=== PATIENT | female | born 1960 | race Caucasian/White ===

== ENCOUNTER 2021-01-14 21:18 | Observation (INO) | payer BC ==
[2021-01-14] MEDS ORDERED: HYDROmorphone 0.5 MG/0.5 ML SYRINGE IVP STA (21:30)
[2021-01-14 21:48] LABS: Basophils % (A) 0 %; Eosinophils % (A) 0 %; HGB 12.5 gm/dL (11.4-16.0); Lymphocytes # (A) 0.8 k/uL (1.0-4.8); Lymphocytes % (A) 7 %; MCH 29.7 pg (25.0-35.0); MCHC 33.8 g/dL (31.0-37.0); MCV 87.9 fL (80.0-100.0); Mean Platelet Volume 6.9; Monocytes # (A) 0.4 k/uL (0-1.0); Monocytes % (A) 3 %; Neutrophils # (A) 9.5 k/uL (1.3-7.7); Neutrophils % (A) 88 %; Platelet Count 374 k/uL (150-450); RBC 4.21 m/uL (3.80-5.40); RDW 13.3 % (11.5-15.5); WBC 10.8 k/uL (3.8-10.6)
[2021-01-14 22:03] LABS: Prothrombin Time 10.6 sec (9.0-12.0)
[2021-01-14 22:11] LABS: ALT 90 U/L (4-34); AST 76 U/L (14-36); African American GFR (CKD) 77 (>60 ml/min/1.73 sqM); Albumin 4.2 g/dL (3.5-5.0); Alcohol <10 mg/dL; Alkaline Phosphatase 62 U/L (38-126); Anion Gap 13 mmol/L; Blood Urea Nitrogen 24 mg/dL (7-17); Calcium 9.4 mg/dL (8.4-10.2); Carbon Dioxide 20 mmol/L (22-30); Chloride 100 mmol/L (98-107); Glucose 155 mg/dL (74-99); Non-African American GFR(CKD) 67 (>60 ml/min/1.73 sqM); Potassium 5.1 mmol/L (3.5-5.1); Sodium 133 mmol/L (137-145); Total Bilirubin 0.6 mg/dL (0.2-1.3)
--- NOTE | 2021-01-14 22:23 | XR ---
EXAMINATION TYPE: XR pelvis AP view DATE OF EXAM: 01/14/2021 COMPARISON: NONE HISTORY: Trauma. Pain TECHNIQUE: Single view FINDINGS: Pelvic ring is intact. Proximal femurs and hip joints are intact. Sacroiliac joints are int act. IMPRESSION: No pelvic fracture seen.
--- NOTE | 2021-01-14 22:25 | XR ---
EXAMINATION TYPE: XR chest 1V portable DATE OF EXAM: 01/14/2021 COMPARISON: NONE HISTORY: Trauma pain. TECHNIQUE: Single view FINDINGS: There is mild subsegmental atelectasis right lung base. Heart is normal. There are no hilar masses. There is no heart failure. Costophrenic angles are fairly clear. There is no pneumothorax. T here are chest leads. There is some arthritic change in the right shoulder joint. IMPRESSION: Subsegmental atelectasis right lung base. Normal heart.
--- NOTE | 2021-01-14 22:42 | CT ---
EXAMINATION TYPE: CT brain cspine wo con DATE OF EXAM: 01/14/2021 COMPARISON: None HISTORY: trauma CT DLP: [id number] mGycm Automated exposure control for dose reduction was used. TECHNIQUE: CT scan of the head and cervical spine are performed without contrast. FINDINGS: There is no acute intracranial hemorrhage, mass effect, or midline shift identified. The ventricles and sulci are within normal limits in size. The globes are intact and the visualized sin uses are clear. Visualized portions of the soft tissues demonstrate subcutaneous edema/hematoma invol ving the right posterior and lateral superior soft tissues. Cervical spine is visualized in its entirety from C1 through upper thoracic levels and demonstrates s atisfactory alignment without evidence of acute fracture or dislocation. Prevertebral soft tissue ap pears within normal limits. The C1-C2 articulation is unremarkable. Opacities within the lung apices are present. Please see dedicated CT chest for findings regarding th e chest. IMPRESSION: 1. There is no acute fracture or dislocation evident in the cervical spine. 2. No acute intracranial hemorrhage, mass effect, or midline shift is seen. 3. Scalp hematoma/edema involving the right posterolateral soft tissues.
--- NOTE | 2021-01-14 22:45 | CT ---
EXAMINATION TYPE: CT ChestAbdPelvis w con DATE OF EXAM: 01/14/2021 COMPARISON: None HISTORY: trauma Pain CT DLP: [id number] mGycm Automated exposure control for dose reduction was used. CONTRAST: Performed with IV Contrast, patient injected with 100 mL of Isovue 300. Images obtained from the thoracic inlet to the floor the pelvis with IV contrast. There is patchy atelectasis in the posterior lung castillo. There is no pneumothorax. There is no evide nce of a pulmonary mass. There is no pleural effusion. There is no mediastinal adenopathy. Thoracic a benjamín is intact. There is no aneurysm or dissection. There are no hilar masses. There is small hiatal hernia. Liver and spleen are intact. There is no pancreatic mass. Gallbladder is intact. There are small calc ified gallstones. Stomach is intact. There is no adrenal mass. 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 There is no retroperitoneal adenopathy. Lateral distends smoothly. Uterus is anteverted. There is no free fluid in the pelvis. There are sigmoid diverticula without sign of diverticulitis. Appendix not seen. No sign of thickened appendix. There is subcutaneous edema over the posterior lumbar spine on the right side and extending into the pelvis. There is subcutaneous edema over the posterior lateral right gluteal muscle. There is no mesenteric edema. There is no ascites or free air. There is no bowel obstruction. Thoracic and lumbar spine are intact. There is no compression fracture. Sternum is intact. The bony p terri is intact. There is no evidence of a hip fracture. Acetabula appear intact. The shoulder joints appear intact. There is minor arthritic changes. The ribs appear intact. IMPRESSION: There is some patchy atelectasis in the posterior lung castillo. There is subcutaneous bruising over th e posterior right side lumbar spine and right side of the pelvis. No evidence of traumatic injury within the abdomen and pelvis. There is colonic diverticulosis withou t diverticulitis.
[2021-01-14] MEDS ORDERED: METOCLOPRAMIDE 5 MG/ML 2 ML VIAL IVP STA ×2 (23:04→23:43)
--- NOTE | 2021-01-14 23:04 | ED ---
Fall HPI - General Chief Complaint: Fall Stated Complaint: Fall Source: patient, EMS Mode of arrival: EMS - History of Present Illness Initial Comments: 60-year-old female past medical history of hyperlipidemia and hypertension presents to the emergency department for evaluation of traumatic injuries. Conner jimenez was climbing a ladder around 1 PM this afternoon when she fell off from a height of approximately 15 feet. She hit her head and states that she lost consciousness. Also must of fell onto her right side as she is having sided chest wall and flank pain. She was having some nausea and vomiting after she became arousable. She then began having some nausea in the evening and called EMS. She had an episode of vomiting in ambulance. IV was established they gave her 4 mg of Zofran. Patient is reporting a headache without visual changes. No neck pain. She arrives without a c-collar. She denies any numbness, tingling or weakness in her extremities. Does admit to some right-sided chest wall pain. No hematemesis. Denies any abdominal pain. No pain in her extremities. Patient is not on blood thinner. No other alleviating, precipitating or modifying factors - Related Data Home Medications Medication Instructions Recorded Confirmed Omeprazole 20 mg PO DAILY 01/14/21 01/14/21 Pravastatin Sodium [Pravachol] 40 mg PO DAILY 01/14/21 01/14/21 lisinopriL [Zestril] 10 mg PO DAILY 01/14/21 01/14/21 Allergies Allergy/AdvReac Type Severity Reaction Status Date / Time No Known Allergies Allergy Verified 01/14/21 23:01 Review of Systems ROS Statement: Those systems with pertinent positive or pertinent negative responses have been documented in the HPI. ROS Other: All systems not noted in ROS Statement are negative. Past Medical History Past Medical History: Hyperlipidemia, Hypertension History of Any Multi-Drug Resistant Organisms: None Reported Past Surgical History: No Surgical Hx Reported Past Psychological History: No Psychological Hx Reported Smoking Status: Former smoker General Exam Limitations: no limitations Course Vital Signs 01/14/21 01/14/21 21:20 21:23 Temperature 98.8 F Pulse Rate 82 Respiratory 18 Rate Blood Pressure 101/59 Medical Decision Making - Medical Decision Making Upon arrival patient is placed into trauma bay 3. Priority she was activated. Patient was given 1 mg of Dilaudid. Patient placed in a c-collar. Portable chest and pelvic x-rays performed. Patient does go for a CT of her head and ce rvical spine. CT of her chest and pelvis is performed also due to her trauma. Laboratory studies are reviewed. Mild elevation of the patient's AST and ALTs. Patient does go over for CT. This is after she is given pain medications. She does have a second episode of emesis and oxygen saturations fall. Patient requires 3 L of oxygen to maintain saturations of 94%. CT of the brain, cervical spine, chest and pelvis are reviewed and demonstrate subcutaneous edema of the right sided soft tissues. No acute intracranial process. No cervical fractures. Cervical collar is removed. Patient denies having any neck pain at this time. I did discuss diagnosis, differential and treatment options. As the patient continues to have nausea with vomiting and is requiring some oxygen needs I did recommend admission. Spoke with Dr. Barnard who agreed to admit the patient. Patient remained in stable condition awaiting a bed - Lab Data Result diagrams: 01/14/21 21:30 01/14/21 21:30 Lab Results 01/14/21 01/14/21 01/14/21 Range/Units 21:30 21:30 21:30 WBC 10.8 H (3.8-10.6) k/uL RBC 4.21 (3.80-5.40) m/uL Hgb 12.5 (11.4-16.0) gm/dL Hct 37.0 (34.0-46.0) % MCV 87.9 (80.0-100.0) fL MCH 29.7 (25.0-35.0) pg MCHC 33.8 (31.0-37.0) g/dL RDW 13.3 (11.5-15.5) % Plt Count 374 (150-450) k/uL MPV 6.9 Neutrophils % 88 % Lymphocytes % 7 % Monocytes % 3 % Eosinophils % 0 % Basophils % 0 % Neutrophils # 9.5 H (1.3-7.7) k/uL Lymphocytes # 0.8 L (1.0-4.8) k/uL Monocytes # 0.4 (0-1.0) k/uL Eosinophils # 0.0 (0-0.7) k/uL Basophils # 0.0 (0-0.2) k/uL PT 10.6 (9.0-12.0) sec INR 1.0 (<1.2) APTT 21.0 L (22.0-30.0) sec Sodium 133 L (137-145) mmol/L Potassium 5.1 (3.5-5.1) mmol/L Chloride 100 (98-107) mmol/L Carbon Dioxide 20 L (22-30) mmol/L Anion Gap 13 mmol/L BUN 24 H (7-17) mg/dL Creatinine 0.93 (0.52-1.04) mg/dL Est GFR (CKD-EPI)AfAm 77 (>60 ml/min/1.73 sqM) Est GFR (CKD-EPI)NonAf 67 (>60 ml/min/1.73 sqM) Glucose 155 H (74-99) mg/dL Calcium 9.4 (8.4-10.2) mg/dL Total Bilirubin 0.6 (0.2-1.3) mg/dL AST 76 H (14-36) U/L ALT 90 H (4-34) U/L Alkaline Phosphatase 62 (38-126) U/L Troponin I (0.000-0.034) ng/mL Total Protein 7.0 (6.3-8.2) g/dL Albumin 4.2 (3.5-5.0) g/dL Serum Alcohol <10 mg/dL Blood Type Blood Type Confirm Blood Type Recheck Bld Type Recheck Status Antibody Screen Spec Expiration Date 01/14/21 01/14/21 01/14/21 Range/Units 21:30 21:30 21:44 WBC (3.8-10.6) k/uL RBC (3.80-5.40) m/uL Hgb (11.4-16.0) gm/dL Hct (34.0-46.0) % MCV (80.0-100.0) fL MCH (25.0-35.0) pg MCHC (31.0-37.0) g/dL RDW (11.5-15.5) % Plt Count (150-450) k/uL MPV Neutrophils % % Lymphocytes % % Monocytes % % Eosinophils % % Basophils % % Neutrophils # (1.3-7.7) k/uL Lymphocytes # (1.0-4.8) k/uL Monocytes # (0-1.0) k/uL Eosinophils # (0-0.7) k/uL Basophils # (0-0.2) k/uL PT (9.0-12.0) sec INR (<1.2) APTT (22.0-30.0) sec Sodium (137-145) mmol/L Potassium (3.5-5.1) mmol/L Chloride (98-107) mmol/L Carbon Dioxide (22-30) mmol/L Anion Gap mmol/L BUN (7-17) mg/dL Creatinine (0.52-1.04) mg/dL Est GFR (CKD-EPI)AfAm (>60 ml/min/1.73 sqM) Est GFR (CKD-EPI)NonAf (>60 ml/min/1.73 sqM) Glucose (74-99) mg/dL Calcium (8.4-10.2) mg/dL Total Bilirubin (0.2-1.3) mg/dL AST (14-36) U/L ALT (4-34) U/L Alkaline Phosphatase (38-126) U/L Troponin I <0.012 (0.000-0.034) ng/mL Total Protein (6.3-8.2) g/dL Albumin (3.5-5.0) g/dL Serum Alcohol mg/dL Blood Type O Negative Blood Type Confirm O Negative Blood Type Recheck No Previous Record Bld Type Recheck Status CABO Indicated Antibody Screen NEGATIVE Spec Expiration Date 01/17/2021 - 233 - EKG Data EKG Comments: EKG demonstrates normal sinus rhythm with a ventricular rate of 81. ID interval 140. QRS 74. QTC of 439. Inverted T-wave lead 3. No acute ST segment elevations or depressions Disposition Clinical Impression: Fall from height of greater than 3 feet, Concussion with loss of consciousness, Nausea & vomiting, Right-sided chest wall pain Disposition: ADMITTED IP TO THIS HOSP Condition: Fair Is patient prescribed a controlled substance at d/c from ED?: No Decision to Admit Reason: Admit from EC Decision Date: 01/14/21 Decision Time: 23:41
[2021-01-14] MEDS ORDERED: MORPHINE SULFATE 4 MG/ML SYRINGE IV PRN (23:41)
[2021-01-14] MEDS ORDERED: ONDANSETRON 4 MG/2 ML VIAL IVP PRN (23:41)
[2021-01-14] MEDS ORDERED: ACETAMINOPHEN TAB 325 MG TAB PO PRN (23:41)
[2021-01-14] MEDS ORDERED: NALOXONE 0.4 MG/ML 1 ML VIAL IV PRN (23:41)
[2021-01-14] MEDS ORDERED: diphenhydrAMINE 50 MG/ML 1 ML VIAL IVP STA (23:43)
[2021-01-15] MEDS: SODIUM CHLORIDE 0.9% 1,000 ML IV SCH ×2 (02:43→13:19)
[2021-01-15 07:04] LABS: Basophils % (A) 0 %; Eosinophils % (A) 0 %; HCT 36.9 % (34.0-46.0); HGB 12.1 gm/dL (11.4-16.0); Lymphocytes # (A) 1.1 k/uL (1.0-4.8); Lymphocytes % (A) 12 %; MCH 29.4 pg (25.0-35.0); MCHC 32.8 g/dL (31.0-37.0); MCV 89.5 fL (80.0-100.0); Mean Platelet Volume 7.7; Monocytes # (A) 0.4 k/uL (0-1.0); Monocytes % (A) 5 %; Neutrophils # (A) 7.5 k/uL (1.3-7.7); Neutrophils % (A) 82 %; Platelet Count 318 k/uL (150-450); RBC 4.13 m/uL (3.80-5.40); RDW 12.8 % (11.5-15.5); WBC 9.1 k/uL (3.8-10.6)
[2021-01-15] MEDS ORDERED: PANTOPRAZOLE 40 MG TABLET PO SCH (07:30)
[2021-01-15] MEDS ORDERED: PRAVASTATIN SODIUM 40 MG TAB PO SCH (09:00)
[2021-01-15] MEDS ORDERED: lisinopriL 10 MG TAB PO SCH (09:00)
[2021-01-15] MEDS ORDERED: LACTATED RINGERS 1,000 ML IV ONE (11:00)
--- NOTE | 2021-01-15 11:03 | P.GSCN ---
History of Present Illness Consult date: 01/15/21 Reason for Consult: Fall from a ladder, closed head injury History of present illness: Patient is a 60-year-old lady who presents to [facility] emergency department the evening of 01/14/2021 at the insistence of acquaintances. She tells me that around 1:00 she was working in her pole barn trying to hang up at type. She was up on about 15 foot stepladder on the ladder slid sideways and she ended up falling about half the length of the stepladder striking her head and right flank on the concrete floor. She may have suffered with a transient loss of consciousness. Throughout the afternoon she had persistent right flank pain and some issues with dizziness and nausea made worse in the upright seated position. By the evening the symptoms had subsided and as such she presents to the emergency department. She denies antecedent dizziness or lightheadedness. No reported history of oral anticoagulants no history of arrhythmia. She further denies history of heart attack, stroke, DVT or pulmonary embolus. Computed tomography scan of the head neck chest abdomen and pelvis was obtained in the emergency department. There were no acute findings on CT he had no evidence of skull fracture or intracranial bleed. No evidence of cervical spine dislocation or fracture. No evidence of rib fracture thoracic or lumbar fracture. No pneumothorax or suggestion of hemothorax. There may be some mild pulmonary contusion or dependent atelectasis. No evidence of solid organ injurysigns of bowel obstruction no intra-abdominal free air or free fluid. No pelvic fracture or hip fracture as visualized on CT. Patient had 3 L supplemental O2 requirement in the ER and some lingering symptoms of nausea and lightheadedness. As such overnight observation admission was requested. Her studies were significant for a mild leukocytosis at around 11,000 that had resolved by the subsequent morning as well as a mild hyponatremia at 133. Blood alcohol level was below detectable threshold. EKG on presentation showed no concerning findings. Past Medical History Past Medical History: Hyperlipidemia, Hypertension History of Any Multi-Drug Resistant Organisms: None Reported Past Surgical History: No Surgical Hx Reported Past Anesthesia/Blood Transfusion Reactions: No Reported Reaction Past Psychological History: No Psychological Hx Reported Smoking Status: Former smoker Medications and Allergies Home Medications Medication Instructions Recorded Confirmed Type Omeprazole 20 mg PO DAILY 12/04/21 12/04/21 History Pravastatin Sodium [Pravachol] 40 mg PO DAILY 01/14/21 01/14/21 History lisinopriL [Zestril] 10 mg PO DAILY 01/14/21 01/14/21 History Allergies Allergy/AdvReac Type Severity Reaction Status Date / Time No Known Allergies Allergy Verified 01/14/21 23:01 Surgical - Exam Osteopathic Statement: *. No significant issues noted on an osteopathic structural exam other than those noted in the History and Physical/Consult. Vital Signs Pulse Resp BP 82 18 101/59 01/14/21 21:20 01/14/21 21:20 01/14/21 21:20 Results - Labs 01/15/21 05:34 01/14/21 21:30 Abnormal Lab Results - Last 24 Hours (Table) 01/14/21 01/14/21 01/14/21 Range/Units 21:30 21:30 21:30 WBC 10.8 H (3.8-10.6) k/uL Neutrophils # 9.5 H (1.3-7.7) k/uL Lymphocytes # 0.8 L (1.0-4.8) k/uL APTT 21.0 L (22.0-30.0) sec Sodium 133 L (137-145) mmol/L Carbon Dioxide 20 L (22-30) mmol/L BUN 24 H (7-17) mg/dL Glucose 155 H (74-99) mg/dL AST 76 H (14-36) U/L ALT 90 H (4-34) U/L Diabetes panel 01/14/21 Range/Units 21:30 Sodium 133 L (137-145) mmol/L Potassium 5.1 (3.5-5.1) mmol/L Chloride 100 (98-107) mmol/L Carbon Dioxide 20 L (22-30) mmol/L BUN 24 H (7-17) mg/dL Creatinine 0.93 (0.52-1.04) mg/dL Glucose 155 H (74-99) mg/dL Calcium 9.4 (8.4-10.2) mg/dL AST 76 H (14-36) U/L ALT 90 H (4-34) U/L Alkaline Phosphatase 62 (38-126) U/L Total Protein 7.0 (6.3-8.2) g/dL Albumin 4.2 (3.5-5.0) g/dL Calcium panel 01/14/21 Range/Units 21:30 Calcium 9.4 (8.4-10.2) mg/dL Albumin 4.2 (3.5-5.0) g/dL Pituitary panel 01/14/21 Range/Units 21:30 Sodium 133 L (137-145) mmol/L Potassium 5.1 (3.5-5.1) mmol/L Chloride 100 (98-107) mmol/L Carbon Dioxide 20 L (22-30) mmol/L BUN 24 H (7-17) mg/dL Creatinine 0.93 (0.52-1.04) mg/dL Glucose 155 H (74-99) mg/dL Calcium 9.4 (8.4-10.2) mg/dL Adrenal panel 01/14/21 Range/Units 21:30 Sodium 133 L (137-145) mmol/L Potassium 5.1 (3.5-5.1) mmol/L Chloride 100 (98-107) mmol/L Carbon Dioxide 20 L (22-30) mmol/L BUN 24 H (7-17) mg/dL Creatinine 0.93 (0.52-1.04) mg/dL Glucose 155 H (74-99) mg/dL Calcium 9.4 (8.4-10.2) mg/dL Total Bilirubin 0.6 (0.2-1.3) mg/dL AST 76 H (14-36) U/L ALT 90 H (4-34) U/L Alkaline Phosphatase 62 (38-126) U/L Total Protein 7.0 (6.3-8.2) g/dL Albumin 4.2 (3.5-5.0) g/dL
[2021-01-15 11:11] LABS: Calcium 9.2 mg/dL (8.4-10.2); Potassium 5.6 mmol/L (3.5-5.1)
[2021-01-15 11:53] LABS: Appearance,Urine Cloudy (Clear); Bacteria,Urine Rare /hpf; Bilirubin,Urine Negative (Negative); Blood,Urine Negative (Negative); Color,Urine Yellow; Glucose,Urine (UA) Negative (Negative); Ketones,Urine Trace (Negative); Leukocyte Esterase,Urine Negative (Negative); Mucus,Urine Rare /hpf; Nitrite,Urine Negative (Negative); Protein,Urine Trace (Negative); RBC,Urine 1 /hpf (0-5); Squamous Epithelial Cell,Urine 2 /hpf (0-4); Urobilinogen,Urine <2.0 mg/dL (<2.0); WBC,Urine 11 /hpf (0-5)
[2021-01-15 11:55] LABS: Amphetamine Screen,Urine Not Detected (NotDetected); Barbiturate Screen,Urine Not Detected (NotDetected); Benzodiazepines Screen,Urine Not Detected (NotDetected); Cocaine Screen,Urine Not Detected (NotDetected); Methadone Screen, Urine Not Detected (NotDetected); Opiate Screen,Urine Detected (NotDetected); Oxycodone Screen, Urine Not Detected (NotDetected); Phencyclidine Screen,Urine Not Detected (NotDetected); Tricyclic Antidepressant,Urine Not Detected (NotDetected); Urn Cannabinoid Scrn Not Detected (NotDetected)
[2021-01-15 11:56] LABS: Specific Gravity,Urine >1.050 (1.001-1.035)
[2021-01-15 15:30] VITALS: BP 104/65; PULSE 94; RESP 18; TEMP 98.3
== END 2021-01-15 18:28 | disposition home or self-care (01) ==
LOC: EC 21:18 → 6NMEDSUR 23:41
PROVIDERS: ADMIT Surgery; ATTEND Surgery
DX: S06.0X9A Concussion with loss of consciousness of unspecified duration, initial encounter (principal); E87.1 Hypo-osmolality and hyponatremia; S00.03XA Contusion of scalp, initial encounter; S30.0XXA Contusion of lower back and pelvis, initial encounter; S20.219A Contusion of unspecified front wall of thorax, initial encounter; J98.11 Atelectasis; K57.30 Diverticulosis of large intestine without perforation or abscess without bleeding; D72.829 Elevated white blood cell count, unspecified; I10 Essential (primary) hypertension; R74.01 Elevation of levels of liver transaminase levels; E78.5 Hyperlipidemia, unspecified; R60.9 Edema, unspecified; R40.2410 Glasgow coma scale score 13-15, unspecified time; W11.XXXA Fall on and from ladder, initial encounter; Z79.899 Other long term (current) drug therapy; Z87.891 Personal history of nicotine dependence
CPT/HCPCS: 96374; 99285; 36415; 93005; 86900; 86901; 80053; 80048; 84484; 85025 ×2; 85610; 85730; 86850; 81001; 80306; 80320; 87635; 72170; 71045; 72125; 70450; 71260; 74177; G0378; J1170; Q9967